=== PATIENT | female | born 1975 | race Caucasian/White ===

== ENCOUNTER 2020-04-22 17:45 | Outpatient (REF) | payer OTHER, SELFPAY ==
--- NOTE | 2020-04-22 | MM_ITS ---
EXAMINATION: MM SCREENING DIGITAL BREAST TOMOSYNTHESIS, BILATERAL CLINICAL INFORMATION: Screening. Asymptomatic. The lifetime risk of breast cancer based on the Tyrer-Cuzick Model is 9.0%. COMPARISON: Mammography: January 24, 2019 and December 20, 2017 TECHNIQUE: Digital breast tomosynthesis is performed in both the craniocaudal and mediolateral oblique views along with computer-aided detection (CAD). Synthesized 2D images are generated from the tomosynthesis. FINDINGS: There are scattered areas of fibroglandular density (ACR BI-RADS breast composition Category b). There are no significant masses, abnormal calcifications, or other abnormalities. MM/MM tomosynthesis screening BI IMPRESSION: There are no significant changes from prior study. ASSESSMENT: BI-RADS 1: Negative RECOMMENDATION: Routine annual mammography screening. This patient's information was entered into a reminder system with a target due date for their next mammogram.
== END 2020-04-22 17:46 | disposition home or self-care (01) ==
LOC: HO.MAMMO 17:45
PROVIDERS: PCP Internal Medicine; Visit Provider Internal Medicine
DX: Z12.31 Encounter for screening mammogram for malignant neoplasm of breast (principal)
CPT/HCPCS: 77063; 77067

== ENCOUNTER 2021-05-05 09:55 | Outpatient (REF) | payer OTHER, SELFPAY ==
--- NOTE | ~2021-05-05 | MM_ITS ---
EXAMINATION: MM SCREENING DIGITAL BREAST TOMOSYNTHESIS, BILATERAL CLINICAL INFORMATION: Screening. Asymptomatic. The lifetime risk of breast cancer based on the Tyrer-Cuzick Model is 7.7%. COMPARISON: Mammography: April 22, 2020 and studies dating back to December 20, 2017 TECHNIQUE: Digital breast tomosynthesis is performed in both the craniocaudal and mediolateral oblique views along with computer-aided detection (CAD). Synthesized 2D images are generated from the tomosynthesis. FINDINGS: There are scattered areas of fibroglandular density (ACR BI-RADS breast composition Category b). There are no significant masses, abnormal calcifications, or other abnormalities. MM/MM tomosynthesis screening BI IMPRESSION: There are no significant changes from prior study. ASSESSMENT: BI-RADS 1: Negative RECOMMENDATION: Routine annual mammography screening. This patient's information was entered into a reminder system with a target due date for their next mammogram.
== END 2021-05-05 09:56 | disposition home or self-care (01) ==
LOC: HO.MAMMO 09:55
PROVIDERS: Visit Provider Internal Medicine
DX: Z12.31 Encounter for screening mammogram for malignant neoplasm of breast (principal)
CPT/HCPCS: 77063; 77067

== ENCOUNTER 2022-05-18 10:08 | Outpatient (REF) | payer OTHER, SELFPAY ==
--- NOTE | ~2022-05-18 | MM_ITS ---
EXAMINATION: MM SCREENING DIGITAL BREAST TOMOSYNTHESIS, BILATERAL CLINICAL INFORMATION: Screening. Asymptomatic. The lifetime risk of breast cancer based on the Tyrer-Cuzick Model is 8.9%. COMPARISON: Mammography: May 05, 2021 and studies dating back to December 20, 2017 TECHNIQUE: Digital breast tomosynthesis is performed in both the craniocaudal and mediolateral oblique views along with computer-aided detection (CAD). Synthesized 2D images are generated from the tomosynthesis. FINDINGS: There are scattered areas of fibroglandular density (ACR BI-RADS breast composition Category b). There are no significant masses, abnormal calcifications, or other abnormalities. MM/MM tomosynthesis screening BI IMPRESSION: No significant changes ASSESSMENT: BI-RADS 1: Negative RECOMMENDATION: Routine annual mammography screening. This patient's information was entered into a reminder system with a target due date for their next mammogram.
== END 2022-05-18 10:09 | disposition home or self-care (01) ==
LOC: HO.MAMMO 10:08
PROVIDERS: Visit Provider Internal Medicine
DX: Z12.31 Encounter for screening mammogram for malignant neoplasm of breast (principal)
CPT/HCPCS: 77063; 77067

== ENCOUNTER 2022-09-13 14:54 | Outpatient (REF) | payer OTHER, SELFPAY ==
[2022-09-13 18:52] LABS: Alanine Aminotransferase 16 U/L (0-31); Albumin Level 4.1 g/dL (3.5-5.0); Alkaline Phosphatase 47 U/L (39-117); Anion Gap 16 (12-20); Aspartate Amino Transferase 21 U/L (5-31); Bilirubin Total 0.9 mg/dL (0.0-1.0); Blood Urea Nitrogen 8 mg/dL (9-16); Carbon Dioxide 25 mmol/L (22-29); Chloride 99 mmol/L (96-108); Estimated Glomerular Filt Rate > 60; Glucose Random 149 mg/dL (60-115); Sodium 137 mmol/L (135-145); Total Protein 7.4 g/dL (6.5-8.0)
[2022-09-14 05:08] LABS: Estimated Average Glucose 134 mg/dL; Hemoglobin A1C 148.6408 umol/L; Hemoglobin A1c % 6.3 %
== END 2022-09-13 14:55 | disposition home or self-care (01) ==
LOC: HO.LAB 14:54
PROVIDERS: PCP Internal Medicine; Visit Provider Internal Medicine
DX: R10.9 Unspecified abdominal pain (principal); M79.10 Myalgia, unspecified site; R19.7 Diarrhea, unspecified; R51.9 Headache, unspecified
CPT/HCPCS: 36415; 80053; 83036

== ENCOUNTER 2023-04-10 10:51 | Outpatient (REF) | payer OTHER, SELFPAY ==
[2023-04-10 13:12] LABS: MANUAL DIFF FLAG NO
[2023-04-10 13:18] LABS: Basophils Percent Auto 0.4 % (0-2); Eosinophils Absolute Auto 0.2 X10*3/uL (0.0-0.4); Eosinophils Percent Auto 1.6 % (0-4); Hematocrit 37.4 % (37.0-47.0); Hemoglobin 13.2 g/dl (12.0-16.0); Imm Gran Abs Auto 0.02 X10*3/uL (0.00-0.03); Imm Gran Pct Auto 0.2 % (0.0-0.4); Lymphocytes Absolute Auto 3.5 X10*3/uL (1.2-4.9); Mean Corpuscular HGB Conc 35.3 g/dl (31.0-35.0); Mean Corpuscular Hemoglobin 31.5 pg (27.0-33.0); Mean Corpuscular Volume 89.3 fL (80.0-98.0); Mean Platelet Volume 9.8 fL (9.4-12.3); Monocytes Absolute Auto 0.7 X10*3/uL (0.1-1.2); Monocytes Percent Auto 7.3 % (2-11); Neutrophils Percent Auto 53.5 % (45-73); Platelet Count 241 X10*3/uL (160-400); Red Blood Count 4.19 X10*6/uL (4.20-5.50); Red Cell Distribution Width 11.9 % (11.0-16.0); White Blood Count 9.4 X10*3/uL (4.8-10.8)
[2023-04-10 13:29] LABS: Alanine Aminotransferase 20 U/L (0-31); Albumin Level 4.4 g/dL (3.5-5.0); Alkaline Phosphatase 51 U/L (39-117); Anion Gap 11 (12-20); Aspartate Amino Transferase 22 U/L (5-31); Bilirubin Total 0.5 mg/dL (0.0-1.0); Blood Urea Nitrogen 12 mg/dL (9-16); Calcium 10.2 mg/dL (8.4-10.2); Carbon Dioxide 29 mmol/L (22-29); Chloride 101 mmol/L (96-108); Cholesterol 214 mg/dL (<200); Estimated Glomerular Filt Rate > 60; Glucose Random 140 mg/dL (60-115); HDL Cholesterol 38 mg/dL (>40); LDL Cholesterol Calculated 105 mg/dL (<100); Sodium 137 mmol/L (135-145); Total Protein 8.2 g/dL (6.5-8.0); Triglycerides 355 mg/dL (<150)
[2023-04-10 13:31] LABS: Estimated Average Glucose 143 mg/dL; Hemoglobin A1c % 6.6 % (<6.0)
[2023-04-10 14:02] LABS: Creatinine Urine 27.95 mg/dL; Microalbum/Creatinine Ratio Ur 78.7 ug/mg cr (<30)
== END 2023-04-10 10:52 | disposition home or self-care (01) ==
LOC: HO.10HDL 10:51
PROVIDERS: Visit Provider Internal Medicine
DX: Z00.00 Encounter for general adult medical examination without abnormal findings (principal); E11.9 Type 2 diabetes mellitus without complications; E78.00 Pure hypercholesterolemia, unspecified; I10 Essential (primary) hypertension; Z86.010 Personal history of colon polyps
CPT/HCPCS: 36415; 80053; 80061; 82043; 82570; 83036; 85025

== ENCOUNTER 2023-07-02 09:27 | Outpatient (REF) | payer OTHER, SELFPAY ==
[2023-07-02 11:14] LABS: MANUAL DIFF FLAG NO
[2023-07-02 11:24] LABS: Basophils Absolute Auto 0.1 X10*3/uL (0.0-0.2); Basophils Percent Auto 0.8 % (0-2); Eosinophils Absolute Auto 0.1 X10*3/uL (0.0-0.4); Eosinophils Percent Auto 1.8 % (0-4); Hematocrit 36.9 % (37.0-47.0); Hemoglobin 13.6 g/dl (12.0-16.0); Imm Gran Abs Auto 0.01 X10*3/uL (0.00-0.03); Imm Gran Pct Auto 0.1 % (0.0-0.4); Lymphocytes Absolute Auto 3.8 X10*3/uL (1.2-4.9); Lymphocytes Percent Auto 51.7 % (20-40); Mean Corpuscular HGB Conc 36.9 g/dl (31.0-35.0); Mean Corpuscular Hemoglobin 31.8 pg (27.0-33.0); Mean Corpuscular Volume 86.2 fL (80.0-98.0); Mean Platelet Volume 9.9 fL (9.4-12.3); Monocytes Absolute Auto 0.5 X10*3/uL (0.1-1.2); Monocytes Percent Auto 7.1 % (2-11); Neutrophils Absolute Auto 2.8 x10*3/uL (2.0-8.3); Neutrophils Percent Auto 38.5 % (45-73); Platelet Count 227 X10*3/uL (160-400); Red Blood Count 4.28 X10*6/uL (4.20-5.50); Red Cell Distribution Width 12.5 % (11.0-16.0); White Blood Count 7.3 X10*3/uL (4.8-10.8)
[2023-07-02 11:30] LABS: Estimated Average Glucose 134 mg/dL; Hemoglobin A1c % 6.3 % (<6.0)
[2023-07-02 11:33] LABS: Creatinine Urine 45.79 mg/dL; Microalbum/Creatinine Ratio Ur 39.3 ug/mg cr (<30)
[2023-07-02 12:22] LABS: Alanine Aminotransferase 24 U/L (0-31); Albumin Level 4.3 g/dL (3.5-5.0); Alkaline Phosphatase 52 U/L (39-117); Anion Gap 14 (12-20); Aspartate Amino Transferase 22 U/L (5-31); Bilirubin Total 0.5 mg/dL (0.0-1.0); Blood Urea Nitrogen 10 mg/dL (9-16); Calcium 10.1 mg/dL (8.4-10.2); Carbon Dioxide 26 mmol/L (22-29); Chloride 102 mmol/L (96-108); Cholesterol 226 mg/dL (<200); Estimated Glomerular Filt Rate > 60; Glucose Random 206 mg/dL (60-115); HDL Cholesterol 43 mg/dL (>40); LDL Cholesterol Calculated 142 mg/dL (<100); Potassium 3.8 mmol/L (3.3-5.1); Sodium 138 mmol/L (135-145); Total Protein 7.5 g/dL (6.5-8.0); Triglycerides 207 mg/dL (<150)
== END 2023-07-02 09:28 | disposition home or self-care (01) ==
LOC: HO.10HDL 09:27
PROVIDERS: Visit Provider Internal Medicine
DX: Z00.00 Encounter for general adult medical examination without abnormal findings (principal); E11.9 Type 2 diabetes mellitus without complications; E78.00 Pure hypercholesterolemia, unspecified; I10 Essential (primary) hypertension; Z86.010 Personal history of colon polyps
CPT/HCPCS: 36415; 80053; 80061; 82043; 82570; 83036; 85025

== ENCOUNTER 2023-07-14 08:46 | Outpatient (REF) | payer OTHER, SELFPAY | END 2023-07-14 08:47 | disposition home or self-care (01) | LOC: HO.MAMMO 08:46 | PROVIDERS: PCP Internal Medicine; Visit Provider Internal Medicine | DX: Z12.31 Encounter for screening mammogram for malignant neoplasm of breast (principal) | CPT/HCPCS: 77063; 77067 ==

== ENCOUNTER → 2023-07-14 09:00 | Outpatient (BNV) | payer OTHER, SELFPAY | PROVIDERS: PCP Internal Medicine; Visit Provider Radiology Diagnostic Radiology | DX: Z12.31 Encounter for screening mammogram for malignant neoplasm of breast (principal) | CPT/HCPCS: 77063; 77067 ==

== ENCOUNTER 2023-10-03 09:59 | Outpatient (REF) | payer OTHER, SELFPAY ==
[2023-10-03 11:18] LABS: Estimated Average Glucose 151 mg/dL; Hemoglobin A1c % 6.9 % (<6.0)
[2023-10-03 11:33] LABS: Alanine Aminotransferase 20 U/L (0-31); Albumin Level 4.2 g/dL (3.5-5.0); Alkaline Phosphatase 49 U/L (39-117); Anion Gap 10 (12-20); Aspartate Amino Transferase 20 U/L (5-31); Bilirubin Total 0.6 mg/dL (0.0-1.0); Blood Urea Nitrogen 9 mg/dL (9-16); Calcium 9.5 mg/dL (8.4-10.2); Carbon Dioxide 28 mmol/L (22-29); Chloride 105 mmol/L (96-108); Cholesterol 216 mg/dL (<200); Estimated Glomerular Filt Rate > 60; Glucose Random 154 mg/dL (60-115); HDL Cholesterol 37 mg/dL (>40); LDL Cholesterol Calculated 118 mg/dL (<100); Potassium 3.9 mmol/L (3.3-5.1); Sodium 139 mmol/L (135-145); Total Protein 7.8 g/dL (6.5-8.0); Triglycerides 308 mg/dL (<150)
== END 2023-10-03 10:00 | disposition home or self-care (01) ==
LOC: HO.10HDL 09:59
PROVIDERS: Visit Provider Internal Medicine
DX: E11.9 Type 2 diabetes mellitus without complications (principal); E78.2 Mixed hyperlipidemia; I10 Essential (primary) hypertension; Z68.34 Body mass index [BMI] 34.0-34.9, adult
CPT/HCPCS: 36415; 80053; 80061; 83036

== ENCOUNTER 2024-01-22 08:28 | Outpatient (REF) | payer OTHER, SELFPAY ==
[2024-01-22 11:33] LABS: Estimated Average Glucose 131 mg/dL; Hemoglobin A1c % 6.2 % (<6.0)
[2024-01-22 11:34] LABS: Alanine Aminotransferase 17 U/L (0-31); Albumin Level 4.2 g/dL (3.5-5.0); Alkaline Phosphatase 52 U/L (39-117); Anion Gap 11 (12-20); Aspartate Amino Transferase 17 U/L (5-31); Bilirubin Total 0.5 mg/dL (0.0-1.0); Blood Urea Nitrogen 8 mg/dL (9-16); Calcium 9.6 mg/dL (8.4-10.2); Carbon Dioxide 27 mmol/L (22-29); Chloride 105 mmol/L (96-108); Estimated Glomerular Filt Rate > 60; Glucose Random 156 mg/dL (60-115); Potassium 4.1 mmol/L (3.3-5.1); Sodium 139 mmol/L (135-145); Total Protein 7.7 g/dL (6.5-8.0)
== END 2024-01-22 08:29 | disposition home or self-care (01) ==
LOC: HO.10HDL 08:28
PROVIDERS: Visit Provider Internal Medicine
DX: E11.9 Type 2 diabetes mellitus without complications (principal); E78.00 Pure hypercholesterolemia, unspecified; I10 Essential (primary) hypertension
CPT/HCPCS: 36415; 80053; 83036

== ENCOUNTER 2024-02-26 11:00 | Outpatient (RCR) | payer OTHER, SELFPAY | END 2024-03-17 12:02 | disposition home or self-care (01) | LOC: HO.PT 11:00 | PROVIDERS: PCP Internal Medicine; Visit Provider Internal Medicine Rheumatology | DX: M79.7 Fibromyalgia (principal); M54.50 Low back pain, unspecified; M17.0 Bilateral primary osteoarthritis of knee; M79.672 Pain in left foot; M79.671 Pain in right foot | CPT/HCPCS: 97110; 97112; 97140; 97162 ==

== ENCOUNTER 2024-02-27 09:12 | Outpatient (REF) | payer OTHER, SELFPAY ==
[2024-02-27 10:39] LABS: MANUAL DIFF FLAG NO
[2024-02-27 10:45] LABS: Basophils Percent Auto 0.5 % (0-2); Eosinophils Absolute Auto 0.2 X10*3/uL (0.0-0.4); Eosinophils Percent Auto 2.4 % (0-4); Hematocrit 36.3 % (37.0-47.0); Imm Gran Abs Auto 0.04 X10*3/uL (0.00-0.03); Imm Gran Pct Auto 0.6 % (0.0-0.4); Lymphocytes Absolute Auto 2.9 X10*3/uL (1.2-4.9); Lymphocytes Percent Auto 44.5 % (20-40); Mean Corpuscular HGB Conc 35.8 g/dl (31.0-35.0); Mean Corpuscular Hemoglobin 31.6 pg (27.0-33.0); Mean Corpuscular Volume 88.1 fL (80.0-98.0); Mean Platelet Volume 9.3 fL (9.4-12.3); Monocytes Absolute Auto 0.5 X10*3/uL (0.1-1.2); Monocytes Percent Auto 8.2 % (2-11); Neutrophils Absolute Auto 2.9 x10*3/uL (2.0-8.3); Neutrophils Percent Auto 43.8 % (45-73); Platelet Count 220 X10*3/uL (160-400); Red Blood Count 4.12 X10*6/uL (4.20-5.50); Red Cell Distribution Width 11.9 % (11.0-16.0); White Blood Count 6.6 X10*3/uL (4.8-10.8)
[2024-02-27 10:53] LABS: Estimated Average Glucose 128 mg/dL; Hemoglobin A1C 141.7911 umol/L; Hemoglobin A1c % 6.1 % (<6.0); Total Hemoglobin (HGBA1C) 3326.1476 umol/L
[2024-02-27 10:57] LABS: Alanine Aminotransferase 12 U/L (0-31); Albumin Level 4.2 g/dL (3.5-5.0); Alkaline Phosphatase 51 U/L (39-117); Anion Gap 12 (12-20); Aspartate Amino Transferase 13 U/L (5-31); Bilirubin Total 0.5 mg/dL (0.0-1.0); Blood Urea Nitrogen 12 mg/dL (9-16); Calcium 9.7 mg/dL (8.4-10.2); Carbon Dioxide 25 mmol/L (22-29); Chloride 107 mmol/L (96-108); Cholesterol 204 mg/dL (<200); Estimated Glomerular Filt Rate > 60; Glucose Random 138 mg/dL (60-115); HDL Cholesterol 33 mg/dL (>40); LDL Cholesterol Calculated 128 mg/dL (<100); Potassium 3.6 mmol/L (3.3-5.1); Sodium 140 mmol/L (135-145); Total Protein 7.7 g/dL (6.5-8.0); Triglycerides 215 mg/dL (<150)
[2024-02-27 11:13] LABS: Creatinine Urine 239.12 mg/dL; Microalbum/Creatinine Ratio Ur 28.4 ug/mg cr (<30)
== END 2024-02-27 09:13 | disposition home or self-care (01) ==
LOC: HO.10HDL 09:12
PROVIDERS: Visit Provider Internal Medicine
DX: E11.9 Type 2 diabetes mellitus without complications (principal); E78.00 Pure hypercholesterolemia, unspecified; I10 Essential (primary) hypertension; Q66.51 Congenital pes planus, right foot
CPT/HCPCS: 36415; 80053; 80061; 82043; 82570; 83036; 85025

== ENCOUNTER 2024-04-08 11:04 | Outpatient (RCR) | payer OTHER, SELFPAY ==
--- NOTE | 2024-04-08 14:43 | MHC.PT.DC ---
[facility] [place] Office [place] Office [place] Office [address] Tati Rae [address] [phone] F: [phone] F: [phone] F: [phone] F: [phone] Physical Therapy Discharge Report Diagnosis: foot pain (per MD) mild plantar fasciitis d/t R LE weakness (RS) Date of Surgery: Date of Evaluation: 03/17/24 Date of Discharge: 04/08/24 Treatments to Date: 6 Cancellations to Date: 5 No Shows to Date: 0 Discharge Status: Improved Function Recommend MD Follow-up Discharge Summary: Elizabeth shows improvement in AROM of R ankle, improved gait pattern with addition of heel lift in L shoe, increased strength in R ankle and R hip, but with weakness remaining in glues which could effect medial foot/plantar fascia and low back. During her time in PT she has been educated and re-educated on importance of consistency with exercises to strengthen LE musculature, consistent use of heel lift to correct malalignment/leg length discrepancy. She has difficulty showing HEP throughout her time in PT and bends at the waist to perform activities such as shrimp picker shoes or keys despite education and practice of proper squat to prevent LBP. She completed approved amount of PT sessions set by insurance. I do not feel more PT for this condition would be beneficial at this time, but that consistency with home program is needed to see significant progress outside of PT sessions. She continues to note that pain is the most limiting factor. Therefore return to MD, specialist or pain management may be most beneficial. Electronically signed by: Verna Ramsay, PT, DPT Please sign and return to therapist. Thank you for your referral.
== END 2024-04-08 14:44 | disposition home or self-care (01) ==
LOC: HO.PT 11:04
PROVIDERS: PCP Internal Medicine; Visit Provider Internal Medicine Rheumatology
DX: M79.7 Fibromyalgia (principal); M54.50 Low back pain, unspecified; M17.0 Bilateral primary osteoarthritis of knee
CPT/HCPCS: 97110; 97112; 97116; 97140; 97161

== ENCOUNTER 2024-04-30 09:52 | Outpatient (AMB) | payer OTHER, SELFPAY ==
[2024-04-30 10:31] VITALS: BP 118/78; PULSE 72; O2SAT 98; BMI 33.6
--- NOTE | 2024-04-30 10:31 | A.OFFVIS_ITS ---
Vital Signs 04/30/24 10:31 Height 5 ft 1 in Weight 177 lb 14.609 oz BMI 33.6 BP 118/78 Blood Pressure Location Lt brachial Position Sitting Pulse 72 Pulse Source Pulse Oximeter Pulse Oximetry (%) 98 Oxygen Delivery Method Room Air Intake Visit Reasons: FM/cm Intake Note: Patient presents today for follow up on fibromyalgia. Allergies No Known Allergies Allergy (Verified 04/30/24 10:35) HPI HPI FM/cm: Details: R foot pain for 5 pains in between web spaces. Massage, salt bath and vix rub helps. She was unable to touch it when it started. She is having weakness in hands. Has to drop things when holding heavy cookware/food. She is going to PT for back pain without relief. She reports when she does the exercises consistently she has relief. If she misses a day she has recurrence of back pain. Psychiatry increased duloxetine. She has had a little bit of benefit. Review of Systems Const All systems reviewed & are unremarkable except as noted in HPI and below Physical Exam Vital Signs: Last Vital Signs Pulse 72 04/30/24 10:31 BP 118/78 04/30/24 10:31 Pulse Ox 98 04/30/24 10:31 Oxygen Delivery Method Room Air 04/30/24 10:31 BMI result Body Mass Index 33.6 Assessment & Plan Assessment & Plan (1) Foot pain: Comment: Chronic pain localized to 4th metatarsal head laterally. We will rule out fracture any other bone pathology with x-ray Code(s): M79.673 - Pain in unspecified foot Category: Medical Qualifiers: Laterality: right Qualified Code(s): M79.671 - Pain in right foot Plan: X-ray ordered. We will inform patient of x-ray results as soon as they are available. She declined NSAID this visit due to fear of side effects Return to clinic in 3 months (2) Osteoarthritis, knee: Comment: Uncontrolled pain. Previously failed PT in the past, cortisone injections, gel injections and NSAIDs. Gabapentin 09/07/2021 to 12/07/2021 DC due to palpitations. She had some benefit with diclofenac 50 mg p.o. b.i.d. but is fearful of side effects and does not want to take it penitentiary. She agreed to PT. Code(s): M17.9 - Osteoarthritis of knee, unspecified Category: Medical Qualifiers: Osteoarthritis type: primary Laterality: bilateral Qualified Code(s): M17.0 - Bilateral primary osteoarthritis of knee Plan: PT order given to patient. She prefers to continue working with physical therapist that she is currently working with at this time. 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
== END 2024-04-30 11:14 | disposition home or self-care (01) ==
PROVIDERS: PCP Internal Medicine; Visit Provider Internal Medicine Rheumatology
DX: M79.671 Pain in right foot (principal); M17.0 Bilateral primary osteoarthritis of knee
CPT/HCPCS: 99213; G2211

== ENCOUNTER → 2024-04-30 09:52 | Outpatient (BNVA) | payer OTHER, SELFPAY | PROVIDERS: PCP Internal Medicine; Visit Provider Internal Medicine Rheumatology | DX: M79.671 Pain in right foot (principal); M17.0 Bilateral primary osteoarthritis of knee; Z79.1 Long term (current) use of non-steroidal anti-inflammatories (NSAID) | CPT/HCPCS: 99212 ==

== ENCOUNTER 2024-05-19 12:52 | Outpatient (REF) | payer OTHER, SELFPAY ==
--- NOTE | ~2024-05-19 | XR_ITS ---
CLINICAL HISTORY: M79.673 - Pain in unspecified foot 3 view right foot Comparison: None Findings: Bones intact. No dislocations. No significant loss of joint space, osteophytes, or erosions. No ankle effusion. No radiopaque foreign body. IMPRESSION: 1. No acute findings. This document has been electronically signed by: Kevin Sanchez MD on 05/22/2024 11:36:23
== END 2024-05-19 12:53 | disposition home or self-care (01) ==
LOC: HO.XRAY 12:52
PROVIDERS: PCP Internal Medicine; Visit Provider Internal Medicine Rheumatology
DX: M79.673 Pain in unspecified foot (principal); M17.9 Osteoarthritis of knee, unspecified; Z79.1 Long term (current) use of non-steroidal anti-inflammatories (NSAID)
CPT/HCPCS: 73620

== ENCOUNTER → 2024-05-19 12:54 | Outpatient (BNV) | payer OTHER, SELFPAY | PROVIDERS: PCP Internal Medicine; Visit Provider Radiology Vascular & Interventional Radiology | DX: M79.671 Pain in right foot (principal) | CPT/HCPCS: 73620 ==

== ENCOUNTER 2024-07-31 10:24 | Outpatient (AMB) | payer OTHER, SELFPAY ==
[2024-07-31 10:41] VITALS: BP 120/90; PULSE 73; O2SAT 73; BMI 33.3
--- NOTE | 2024-07-31 10:41 | MHC.OFFVIS ---
Vital Signs 07/31/24 10:41 Height 5 ft 1 in Weight 176 lb BMI 33.3 BP 120/90 H Blood Pressure Location Lt brachial Position Sitting Pulse 73 Pulse Source Pulse Oximeter Pulse Oximetry (%) 73 L Oxygen Delivery Method Room Air Intake Visit Reasons: Follow Up 3mo Intake Note: Follow up for fibromalgia Allergies No Known Allergies Allergy (Verified 07/31/24 10:42) HPI HPI Follow Up 3mo: Details: She was unable to start PT. SHe was told she had to wait 3 months to start at [facility] main [employer]. She has been doing her own exercises at home. She has been having chronic back pain for years. She localizes pain to her lower right side. She has been using heat and stretching without benefit. Review of Systems Const All systems reviewed & are unremarkable except as noted in HPI and below Physical Exam Vital Signs: Last Vital Signs Pulse 73 07/31/24 10:41 BP 120/90 H 07/31/24 10:41 Pulse Ox 73 L 07/31/24 10:41 Oxygen Delivery Method Room Air 07/31/24 10:41 BMI result Body Mass Index 33.3 Const Other: General: Comfortable CVS: RRR Respiratory: clear to auscultation bilaterally. Good respiratory effort Skin: No lesions seen MSK: Tender to palpate mid to lumbar paraspinal muscles and laterally. Normal lumbar flexion. Shoulder abduction 170 degrees left and 160 degrees right with normal internal and external rotation. Normal range of motion of lower extremities. Mild Valgus deformity of knees. She has tenderness to palpate right 5th MTP without synovitis. Assessment & Plan Assessment & Plan (1) Myofascial low back pain: Comment: Discussed conservative management Code(s): M54.50 - Low back pain, unspecified Category: Medical Plan: Continue to apply heat to back She will try using hot packs PT ordered with myofascial release (2) Pes planus: Comment: She localizes pain to her right 5th MTP. X-ray right foot did not reveal any pathology. Unremarkable exam. She has past planus. We discussed importance of wearing supportive footwear. Code(s): M21.40 - Flat foot [pes planus] (acquired), unspecified foot Category: Medical Plan: I recommend that she try OTC insoles with supportive shoes. If no benefit with OTC insoles, I recommend seeing supervising bailiff for further evaluation and for custom insoles. Return to clinic in 3 months (3) Osteoarthritis, knee: Comment: Uncontrolled pain. Previously failed PT in the past, cortisone injections, gel injections and NSAIDs. Gabapentin 09/07/2021 to 12/07/2021 DC due to palpitations. She had some benefit with diclofenac 50 mg p.o. b.i.d. 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 She agreed to PT. Code(s): M17.9 - Osteoarthritis of knee, unspecified Category: Medical Qualifiers: Osteoarthritis type: primary Laterality: bilateral Qualified Code(s): M17.0 - Bilateral primary osteoarthritis of knee Plan: PT ordered Return to clinic in 3 months Coding Level of Care Code Est Pt Level 4 (68941) Complex EM visit Add On G2211 Diagnoses Myofascial low back pain M54.50 Pes planus M21.40 Primary osteoarthritis of both knees M17.0 Osteoarthritis type: primary Laterality: bilateral
--- OUTSIDE RECORDS SUMMARY | 2024-07-31 12:59 | XMS_ITS | Clinical Summary ---
Author Organization [address] [facility] Address [address] [place] [address] Phone Care Team Providers Care Transformer Stock Clerk Name Role Phone Unavailable Primary Care Provider Unavailabl e Social History Tobacco Use Types Packs/Day Years Used Date Smoking Tobacco: Never Assessed Comments Unknown Sex and Gender Information Value Date Recorded Sex Assigned at Not on file Legal Sex Female 8:51 AM EST Gender Identity Not on file Sexual Orientation Not on file Plan of Treatment Health Maintenance Due Date Last Done Comments Breast Cancer Screening 1975 DTaP,Tdap,and Td Vaccines (1 - Tdap) 12/20/1995 Hepatitis B Vaccines (1 of 3 - 19+ 3-dose series) 12/20/1995 Colorectal Cancer Screening: Colonoscopy 04/23/2022 Depression Screening 04/23/2022 HIV Screening 04/23/2022 Hepatitis C Screening 04/23/2022 Social Influencers of Health Screening 04/23/2022 COVID-19 Vaccine ( - 2023-2 5 season) 2024 Influenza Vaccine (#1) 2024 Cervical Cancer Screening: HPV 04/24/2029 04/24/2024 HIB Vaccines Aged Out No longer eligi ble based on patient's age to complete this topic HPV Vaccines Aged Out No longer eligi ble based on patient's age to complete this topic Hepatitis A Vaccines Aged Out No long er eligible based on patient's age to complete this topic IPV Vaccines Aged Out No longer eligi ble based on patient's age to complete this topic MMR Vaccines Aged Out No longer eligi ble based on patient's age to complete this topic Meningococcal ACWY Vaccine Aged Out N o longer eligible based on patient's age to complete this topic Meningococcal B Vacine Aged Out No lo nger eligible based on patient's age to complete this topic Pneumococcal Vaccine: Pediat rics (0 to 5 Years) and At-Risk Patients (6 to 64 Years) Aged Out No longer eligi ble based on patient's age to complete this topic RSV Immunization Patients Un maria alejandra 20 months Aged Out No longer eligible b ased on patient's age to complete this topic Varicella Vaccines Aged Out No longer eligible based on patient's age to complete this topic Procedures Procedure Name Priority Date/Time Associated Diagnosis Comments HPV WITH REFLEX GENOTYPE Routine 04/24/2024 12:00 AM EST Encounter for screening for malignant neoplasm of cervix from Last 3 Months or Most Recently Relevant to Health Maintenance Results * HPV with reflex genotype (04/24/2024 12:00 AM EST) HPV Negative Negative LAB MICROBIOLOGY METHOD 04/28/2024 1:36 PM EST [facility] Brushing/Spatula Cervix uteri structure / Unknown 04/24/2024 04/25/2024 10:50 AM EST us Marga Sagastume MD LAB MOLECULAR DIAGNOSTICS ORD ERABLES Final Result [facility] [address] [place] [address], from Last 3 Months or Most Recently Relevant to Health Maintenance Insurance MEDICAID - [place]
--- OUTSIDE RECORDS SUMMARY | 2024-07-31 12:59 | XMS_ITS | Encounter Summary ---
Author Organization [facility] Address [address] [place] [address] Care Team Providers Care Slot Key Person Name Role Phone Unavailable Primary Care Provider Unavailabl e Encounter Details Date Type Department Care Team (Late st Contact Info) Description 04/25/[address] [facility] Lab [address] [place] [address] Marga Sagastume MD [address] [place] [address] [place] [address] Encounter for screening for malignant neoplasm of cervix Social History Tobacco Use Types Packs/Day Years Used Date Smoking Tobacco: Never Assessed Comments Unknown Sex and Gender Information Value Date Recorded Sex Assigned at Not on file Legal Sex Female 8:51 AM EST Gender Identity Not on file Sexual Orientation Not on file documented as of this encounter Plan of Treatment Not on file documented as of this encounter Procedures Procedure Name Priority Date/Time Associated Diagnosis Comments HPV WITH REFLEX GENOTYPE Routine 04/24/2024 12:00 AM EST Encounter for screening for malignant neoplasm of cervix PAP SMEAR Routine 04/24/2024 12:00 AM EST Encounter for screening for malignant neoplasm of cervix documented in this encounter Results * HPV with reflex genotype (04/24/2024 12:00 AM EST) HPV Negative Negative LAB MICROBIOLOGY METHOD 04/28/2024 1:36 PM EST [facility] Brushing/Spatula Cervix uteri structure / Unknown 04/24/2024 04/25/2024 10:50 AM EST Marga Sagastume MD LAB MOLECULAR DIAGNOSTICS ORD ERABLES Final Result [facility] [address] [place] [address], [place] [phone] * Pap smear (04/24/2024 12:00 AM EST) Interpretation Negative for intraepithelial lesion or malignancy 04/30/2024 6:03 PM EST [facility] General Categorization Negative 04/30/2024 6:03 PM EST [facility] LMP 04/30/2024 6:03 PM [facility] Comment:2 WKS Specimen Adequacy Satisfactory for evaluation, endocervical/marrero sformation zone component absent 04/30/2024 6:03 PM EST [facility] Pap Methodology Liquid Based Pap Test 04/30/2024 6:03 PM EST [facility] Disclaimer The Pap test is a screening test which carries an inherent false negative rate. These test results should be correlated with the patient's clinical findings and history. This Pap test was processed using an automated screening system. Technical cytopathology services provided by [facility], at [address] [place] [id number] (CLIA # [id number]/Elena Kuo MD, Mechanical Reliability Engineer.) 04/30/2024 6:03 PM EST [facility] Console Pap Interpretation Reported 04/30/2024 6:03 PM [facility] Brushing/Spatula Cervix uteri structure / Unknown 04/24/2024 04/25/2024 10:50 AM EST Marga Sagastume MD LAB CYTOLOGY ORDERABLES Final Result Performing Organization Address City/[facility]/ZIP Co de Phone Number [facility] [address] [place] [address], [place] [phone] documented in this encounter Visit Diagnoses Diagnosis Encounter for screening for malignant neoplasm of cervix documented in this encounter
== END 2024-07-31 11:11 | disposition home or self-care (01) ==
LOC: HO.RHES 10:25
PROVIDERS: PCP Internal Medicine; Visit Provider Internal Medicine Rheumatology
DX: M54.50 Low back pain, unspecified (principal); M21.40 Flat foot [pes planus] (acquired), unspecified foot; M17.0 Bilateral primary osteoarthritis of knee
CPT/HCPCS: 99214; G2211

== ENCOUNTER → 2024-07-31 10:24 | Outpatient (BNVA) | payer OTHER, SELFPAY | PROVIDERS: PCP Internal Medicine; Visit Provider Internal Medicine Rheumatology | DX: M54.50 Low back pain, unspecified (principal); M21.41 Flat foot [pes planus] (acquired), right foot; M17.0 Bilateral primary osteoarthritis of knee | CPT/HCPCS: 99212 ==

== ENCOUNTER 2024-08-01 09:13 | Outpatient (REF) | payer OTHER, SELFPAY ==
--- OUTSIDE RECORDS SUMMARY | 2024-08-01 10:00 | XMS_ITS | Clinical Summary ---
Author Organization [address] [facility] Address [address] [place] [address] Phone Care Team Providers Care Elder Assistant Name Role Phone Unavailable Primary Care Provider [...] LAB MICROBIOLOGY METHOD 04/28/2024 1:36 PM EST [facility] Brushing/Spatula Cervix uteri structure / Unknown 04/24/2024 04/25/2024 10:50 AM EST us Marga Sagastume MD LAB MOLECULAR DIAGNOSTICS ORD ERABLES Final Result [facility] [address] [place] [address], from Last 3 Months or Most Recently Relevant to Health Maintenance Insurance MEDICAID - [place]
--- OUTSIDE RECORDS SUMMARY | 2024-08-01 10:00 | XMS_ITS | Encounter Summary ---
Author Organization [facility] Address [address] [place] [address] Care Team Providers Care Bobbin Coil Winder Name Role Phone Unavailable Primary Care Provider Unavailabl e Encounter Details Date Type Department Care Team (Late st Contact Info) Description 04/25/2024 Lab Requisition [facility] - Main Lab [address] [place] [address] Marga Sagastume MD [address] [place] [address] [place] [address] Encounter for screening for malignant neoplasm of [...] LAB MICROBIOLOGY METHOD 04/28/2024 1:36 PM EST [facility] Brushing/Spatula Cervix uteri structure / Unknown 04/24/2024 04/25/2024 10:50 AM EST Marga Sagastume MD LAB MOLECULAR DIAGNOSTICS ORD ERABLES Final Result [facility] [address] [place] [address], [place] [phone] * Pap smear (04/24/2024 12:00 AM EST) Interpretation Negative for intraepithelial lesion or malignancy 04/30/2024 6:03 PM EST [facility] General Categorization Negative 04/30/2024 6:03 PM EST [facility] LMP 04/30/2024 6:03 PM [facility] Comment:2 WKS Specimen Adequacy Satisfactory for evaluation, endocervical/marrero sformation zone component absent 04/30/2024 6:03 PM EST [facility] Pap Methodology Liquid Based Pap Test 04/30/2024 6:03 PM EST [facility] Disclaimer The Pap test is a screening test which carries an inherent false negative rate. These test results should be correlated with the patient's clinical findings and history. This Pap test was processed using an automated screening system. Technical cytopathology services provided by [facility], at [address] [place] [id number] (CLIA # [id number]/Elena Kuo MD, Rn Labor And Delivery.) 04/30/2024 6:03 PM EST [facility] Console Pap Interpretation Reported 04/30/2024 6:03 PM [facility] Brushing/Spatula Cervix uteri structure / Unknown 04/24/2024 04/25/2024 10:50 AM EST Marga Sagastume MD LAB CYTOLOGY ORDERABLES Final Result Performing Organization Address City/[facility]/ZIP Co de Phone Number [facility] [address] [place] [address], [place] [phone] documented in this encounter Visit Diagnoses Diagnosis Encounter for screening for malignant neoplasm of cervix documented in this encounter
[2024-08-01 10:47] LABS: Estimated Average Glucose 117 mg/dL; Hemoglobin A1c % 5.7 % (<6.0)
[2024-08-01 11:08] LABS: Alanine Aminotransferase 18 U/L (0-31); Albumin Level 4.2 g/dL (3.5-5.0); Alkaline Phosphatase 53 U/L (39-117); Anion Gap 11 (12-20); Aspartate Amino Transferase 19 U/L (5-31); Bilirubin Total 0.8 mg/dL (0.0-1.0); Blood Urea Nitrogen 12 mg/dL (9-16); Calcium 9.5 mg/dL (8.4-10.2); Carbon Dioxide 26 mmol/L (22-29); Chloride 106 mmol/L (96-108); Cholesterol 138 mg/dL (<200); Estimated Glomerular Filt Rate > 60; Glucose Random 131 mg/dL (60-115); HDL Cholesterol 41 mg/dL (>40); LDL Cholesterol Calculated 71 mg/dL (<100); Potassium 4.1 mmol/L (3.3-5.1); Sodium 139 mmol/L (135-145); Triglycerides 131 mg/dL (<150)
== END 2024-08-01 09:14 | disposition home or self-care (01) ==
LOC: HO.10HDL 09:13
PROVIDERS: Visit Provider Internal Medicine
DX: Z00.00 Encounter for general adult medical examination without abnormal findings (principal); E11.9 Type 2 diabetes mellitus without complications; E78.00 Pure hypercholesterolemia, unspecified; I10 Essential (primary) hypertension; R80.9 Proteinuria, unspecified
CPT/HCPCS: 36415; 80053; 80061; 83036

== ENCOUNTER 2024-08-07 11:52 | Outpatient (REF) | payer OTHER, SELFPAY ==
--- OUTSIDE RECORDS SUMMARY | 2024-08-07 14:16 | XMS_ITS | Encounter Summary ---
Author Organization Jessica [facility] Address [address] [place] [address] Care Team Providers Care Forensic Investigator Name Role Phone Unavailable Primary Care Provider Unavailabl e Encounter Details Date Type Department Care Team (Late st Contact Info) Description 04/25/2024 Lab Requisition [facility] - Main Lab [address] [place] [address] Marga Sagastume MD [address] [place] [address] [place] [address] Encounter for screening for malignant neoplasm of [...] METHOD 04/28/2024 1:36 PM EST [facility] ([facility] Brushing/Spatula Cervix uteri structure / Unknown 04/24/2024 04/25/2024 10:50 AM EST Marga Sagastume MD LAB MOLECULAR DIAGNOSTICS ORD ERABLES Final Result [facility] [address] [place] [address], [place] [phone] * Pap smear (04/24/2024 12:00 AM EST) Interpretation Negative for intraepithelial lesion or malignancy 04/30/2024 6:03 PM EST [facility] General Categorization Negative 04/30/2024 6:03 PM EST [facility] LMP 04/30/2024 6:03 PM [facility] Comment:2 WKS Specimen Adequacy Satisfactory for evaluation, endocervical/marrero sformation zone component absent 04/30/2024 6:03 PM EST [facility] Pap Methodology Liquid Based Pap Test 04/30/2024 6:03 PM EST [facility] Disclaimer The Pap test is a screening test which carries an inherent false negative rate. These test results should be correlated with the patient's clinical findings and history. This Pap test was processed using an automated screening system. Technical cytopathology services provided by [facility], at [address] [place] [address] (CLIA # [id number]/Elena Kuo MD, Motor Electrician.) 04/30/2024 6:03 PM EST [facility] Console Pap Interpretation Reported 04/30/2024 6:03 PM [facility] Brushing/Spatula Cervix uteri structure / Unknown 04/24/2024 04/25/2024 10:50 AM EST Marga Sagastume MD LAB CYTOLOGY ORDERABLES Final Result Performing Organization Address City/[facility]/ZIP Co de Phone Number [facility] [address] [place] [address], [place] [phone] documented in this encounter Visit Diagnoses Diagnosis Encounter for screening for malignant neoplasm of cervix documented in this encounter
--- OUTSIDE RECORDS SUMMARY | 2024-08-07 14:16 | XMS_ITS | Clinical Summary ---
Author Organization 299 [facility] Address [address] [place] [address] Phone Care Team Providers Care Oil Well Cable Tool Driller Name Role Phone Unavailable Primary Care Provider [...] LAB MICROBIOLOGY METHOD 04/28/2024 1:36 PM EST [facility] Brushing/Spatula Cervix uteri structure / Unknown 04/24/2024 04/25/2024 10:50 AM EST us Marga Sagastume MD LAB MOLECULAR DIAGNOSTICS ORD ERABLES Final Result [facility] LAB [address] [place] [address], from Last 3 Months or Most Recently Relevant to Health Maintenance Insurance [place] - [place]
== END 2024-08-07 11:53 | disposition home or self-care (01) ==
LOC: HO.MAMMO 11:52
PROVIDERS: PCP Internal Medicine; Visit Provider Internal Medicine
DX: Z12.31 Encounter for screening mammogram for malignant neoplasm of breast (principal)
CPT/HCPCS: 77063; 77067

== ENCOUNTER → 2024-08-07 12:15 | Outpatient (BNV) | payer OTHER, SELFPAY | PROVIDERS: PCP Internal Medicine; Visit Provider Internal Medicine | DX: Z12.31 Encounter for screening mammogram for malignant neoplasm of breast (principal) | CPT/HCPCS: 77063; 77067 ==

== ENCOUNTER 2024-09-09 09:59 | Outpatient (REF) | payer OTHER, SELFPAY ==
--- OUTSIDE RECORDS SUMMARY | 2024-09-09 11:21 | XMS_ITS | Clinical Summary ---
Author Organization 299 [facility] Address [address] [place] [address] Phone Care Team Providers Care Residential Carpenter Name Role Phone Unavailable Primary Care Provider [...] Influencers of Health Screening 04/23/2022 COVID-19 Vaccine (2023-2 5 season) 2024 Influenza Vaccine (Season Ended) 2025 Cervical Cancer Screening: HPV 04/24/2029 04/24/2024 HIB [...] age to complete this topic Meningococcal B Vaccine Aged Out No l onger eligible based on patient's age to complete [...] LAB MICROBIOLOGY METHOD 04/28/2024 1:36 PM EST [facility] Brushing/Spatula Cervix uteri structure / Unknown 04/24/2024 04/25/2024 10:50 AM EST us Marga Sagastume MD LAB MOLECULAR DIAGNOSTICS ORD ERABLES Final Result [facility] [address] [place] [address], from Last 3 Months or Most Recently Relevant to Health Maintenance Insurance [place] - [place]
--- OUTSIDE RECORDS SUMMARY | 2024-09-09 11:21 | XMS_ITS | Encounter Summary ---
Author Organization Jessica [facility] Address [address] [place] [address] Care Team Providers Care Resp Therapist Name Role Phone Unavailable Primary Care Provider Unavailabl e Encounter Details Date Type Department Care Team (Late st Contact Info) Description 04/25/2024 Lab Requisition [facility] - Main Lab [address] [place] [address] Marga Sagastume MD [address] [place] [address] [place] [address] Encounter for screening for malignant neoplasm of [...] LAB MICROBIOLOGY METHOD 04/28/2024 1:36 PM EST [facility] ([facility] Brushing/Spatula Cervix uteri structure / Unknown 04/24/2024 04/25/2024 10:50 AM EST Marga Sagastume MD LAB MOLECULAR DIAGNOSTICS ORD ERABLES Final Result [facility] [address] [place] [address], [place] [phone] * Pap smear (04/24/2024 12:00 AM EST) Interpretation Negative for intraepithelial lesion or malignancy 04/30/2024 6:03 PM EST [facility] General Categorization Negative 04/30/2024 6:03 PM EST [facility] LMP 04/30/2024 6:03 PM [facility] LAB Comment:2 WKS Specimen Adequacy Satisfactory for evaluation, endocervical/marrero sformation zone component absent 04/30/2024 6:03 PM EST [facility] Pap Methodology Liquid Based Pap Test 04/30/2024 6:03 PM EST [facility] Disclaimer The Pap test is a screening test which carries an inherent false negative rate. These test results should be correlated with the patient's clinical findings and history. This Pap test was processed using an automated screening system. Technical cytopathology services provided by [facility], at [address] [place] [address] (CLIA # [id number]/Elena Kuo MD, Sorter Operator.) 04/30/2024 6:03 PM EST [facility] Console Pap Interpretation Reported 04/30/2024 6:03 PM [facility] Brushing/Spatula Cervix uteri structure / Unknown 04/24/2024 04/25/2024 10:50 AM EST Marga Sagastume MD LAB CYTOLOGY ORDERABLES Final Result Performing Organization Address City/[facility]/ZIP Co de Phone Number [facility] [address] [place] [address], [place] [phone] documented in this encounter Visit Diagnoses Diagnosis Encounter for screening for malignant neoplasm of cervix documented in this encounter
[2024-09-09 13:21] LABS: MANUAL DIFF FLAG NO
[2024-09-09 13:47] LABS: Basophils Percent Auto 0.5 % (0-2); Eosinophils Absolute Auto 0.2 X10*3/uL (0.0-0.4); Eosinophils Percent Auto 2.5 % (0-4); Hematocrit 37.2 % (37.0-47.0); Hemoglobin 13.5 g/dl (12.0-16.0); Imm Gran Abs Auto 0.02 X10*3/uL (0.00-0.03); Imm Gran Pct Auto 0.3 % (0.0-0.4); Lymphocytes Absolute Auto 2.9 X10*3/uL (1.2-4.9); Lymphocytes Percent Auto 37.6 % (20-40); Mean Corpuscular HGB Conc 36.3 g/dl (31.0-35.0); Mean Corpuscular Hemoglobin 32.3 pg (27.0-33.0); Mean Platelet Volume 9.9 fL (9.4-12.3); Monocytes Absolute Auto 0.5 X10*3/uL (0.1-1.2); Monocytes Percent Auto 6.3 % (2-11); Neutrophils Percent Auto 52.8 % (45-73); Platelet Count 213 X10*3/uL (160-400); Red Blood Count 4.18 X10*6/uL (4.20-5.50); Red Cell Distribution Width 11.8 % (11.0-16.0); White Blood Count 7.6 X10*3/uL (4.8-10.8)
[2024-09-09 14:22] LABS: Alanine Aminotransferase 16 U/L (0-31); Albumin Level 4.2 g/dL (3.5-5.0); Alkaline Phosphatase 52 U/L (39-117); Anion Gap 10 (12-20); Aspartate Amino Transferase 19 U/L (5-31); Bilirubin Total 0.6 mg/dL (0.0-1.0); Blood Urea Nitrogen 10 mg/dL (9-16); Calcium 9.3 mg/dL (8.4-10.2); Carbon Dioxide 27 mmol/L (22-29); Chloride 104 mmol/L (96-108); Cholesterol 163 mg/dL (<200); Estimated Average Glucose 117 mg/dL; Estimated Glomerular Filt Rate > 60; Glucose Random 136 mg/dL (60-115); HDL Cholesterol 43 mg/dL (>40); Hemoglobin A1C 138.0307 umol/L; Hemoglobin A1c % 5.7 % (<6.0); LDL Cholesterol Calculated 88 mg/dL (<100); Potassium 3.9 mmol/L (3.3-5.1); Sodium 137 mmol/L (135-145); Total Hemoglobin (HGBA1C) 3550.8688 umol/L; Total Protein 7.5 g/dL (6.5-8.0); Triglycerides 160 mg/dL (<150)
[2024-09-09 14:38] LABS: Thyroid Stimulating Hormone 1.36 uIU/mL (0.32-4.0)
== END 2024-09-09 10:00 | disposition home or self-care (01) ==
LOC: HO.10HDL 09:59
PROVIDERS: Visit Provider Nurse Practitioner Psychiatric/Mental Health
DX: Z79.899 Other long term (current) drug therapy (principal)
CPT/HCPCS: 36415; 80053; 80061; 83036; 84443; 85025

== ENCOUNTER 2024-09-23 09:56 | Outpatient (RCR) | payer OTHER, SELFPAY ==
--- NOTE | 2024-08-05 12:24 | MHC.PT.EP ---
[facility] Office [place] Office [place] Office [address] Tati Rae [address] [phone] F: [phone] F: [phone] F: [phone] F: [phone] Physical Therapy Plan of Care Date of Evaluation: 08/05/24 Date of Surgery: Diagnosis: Bilateral primary OA of knee, M17.0, Low back pain M54.[address] Rocael LEE Additional notes: modalities, myofascial release, tens unit, exercise x 16 sessions date of referral 04/30/24 Assessment: Pt is a RHD 48 y/o female with PMH significant for HTN, DMII, depression per pt, appendectomy, and hx R RTC repair, referred to PT for treatment of Bilateral primary OA of knee, M17.0, Low back pain M54.[address] Rocael LEE Additional notes: modalities, myofascial release, tens unit, exercise x 16 sessions date of referral 04/30/24 Pt expressing history of chronic back pain and knee pain R>L, with history of failed PT in the past for her knees>lower back. Pt reports hx PT for her back at [facility] 01/16/24-03/17/24 x 6 visits with lack of significant gain, some short term relief while completing but then reduction upon stopping her program. Pt would benefit from another round of PT to address current impairments in her mobility/pain levels. She expresses fear of falling due to knee instability and reports difficulty rising off the couch due to her back pain. She has limited carryover from a few exercises of what she has done in the past. She will benefit from integration of manual therapy, trial of TENS, and taping in addition to an active based exercise walking/program. Post initial evaluation, she was trialed with application of ROCKTAPE to her R lumbar > R knee region in effort to improve tissue mobility, aide in support and stretch. She was issued a handout for self-care/removal and goals of use for application. We discussed the importance of avoiding static positions for too long and the importance of movement/exercise program along with goals for PT. Frequency and Duration: The patient will be seen 2x/week x 6 weeks Short Term Goals: 1. Initiate self care/HEP program to address knee and back pain. 2. Implement a walking program for self care. 3. Demonstrate 25% reduction in back pain during ADLS/IADLS. 4. Demonstrate good techniques for functional squat 3:3 trials with good technique, knee pain <3/10. Mcc Goals: 1. I HEP/body mechanics/self-care management. 2. Demonstrate gains in Oswestry disabiity index score. 3. Strengthen L>R hip ext to 5/5; hip abd to 5/5 B LE. 4. Complete bridge/bed mobility MOD I with sx in lumbar <3/10 on VAS score. 5. Pt will demonstrate stair negotiation reciprocally with good dynamic balance. Treatment Plan: Modalities to reduce pain, spasms and effusion. Manual therapy to restore motion and function. Therapeutic exercise to improve strength and flexibility. Neuromuscular re-education for posture and balance. Therapeutic activities to return to functional activities of daily living. Electronically signed by: Debra Stevens PT, DPT Please sign and return to therapist. Thank you for your referral.
--- NOTE | 2024-09-23 10:43 | MHC.PT.DC ---
[facility] [place] Office [place] Office [place] Office [address] Tati Rae [address] [phone] F: [phone] F: [phone] F: [phone] F: [phone] Physical Therapy Discharge Report Diagnosis: Bilateral primary OA of knee, M17.0, Low back pain M54.[address] Rocael LEE Additional notes: modalities, myofascial release, tens unit, exercise x 16 sessions date of referral 04/30/24 Date of Surgery: Date of Evaluation: 08/05/24 Date of Discharge: 09/23/24 Treatments to Date: 12 Cancellations to Date: No Shows to Date: Discharge Status: Discharge Summary: 09/23/24: Pt has attended 12 session of PT to date. Pt has met STG/LTG to date. Pt has been issued a comprehensive lumbar/hip/knee/ankle stab program with good carryover. During sessions, pt has received manual therapy, trial of TENS, core strengthening and flexibility exercises. She has responded positively to use of ROCKTAPE support tape trial with one episode of skin irritation so we have not taped since. She has been using the bike and notes intentions of going to the gym but admits some social anxiety impacting her with this. We have discussed the benefit of a walking program small bouts to tolerance increasing as tolerated. Pt notes ongoing fluctuating blood sugars, higher sugars last week in mid 200s, lower this week notes 160s this week per pt (pt notes no change in her diet and expressed concern for this). Pt notes ongoing joint pain overall which impacts her mobility, I just don't want to get out of bed somedays. Pt has been encouraged to continue stationary bike at home. Back pain 10/28, R knee not that bad today DC pt to I HEP (ALL HEP sheets were issued to her again for help with carryover as she has noted to exhibits decreased carryover and benefitted from repeated education during her visits). 09/15/24 Pt encouraged to reach out to her clinical staff anesthesiologist due to history of trending higher blood sugars- 200s/300. Pt verbalized feeling a little better after exercising during session this date. Pt encouraged to continue to monitor. Anticipate transition to I HEP i (has one visit remaining). 09/04/24; Pt demonstrating positive response to therapy, reports good carryover of stabilization activities for hip/core. 09/01/24: Pt trialed with TENS for relief at end of session. Pt with ? lipoma R lumbar region. Pt has purchased a physioball for home program/selfcare HEP sheets. 08/28/24: Pt doing better overall, benefits from support and encouragement to keep up with home program. Pt to research pball for home use. 08/25/24: Pt requesting to focus on her knee today. Pt defer taping - showed area of redness on skin which was irritated post removal for her back. Doing better with respect to knee pain. 08/21/24: Pt is very weak in R hip abd. Issued for home program. Pt encouraged/issued HEP program. 08/18/24: Pt tight in R QL/lumbar paraspinal/glute. Initiated hooklying lumbar stab including tilt, bridge, and march with good tolerance, fatigue expressed ~10 reps each. Pt reports attempting knee exercises at home with good ability. 08/11/24:Pt with positive response to taping/stretches. Pt with modification/use of towel roll for stretches due to hx soreness/hx RTC repair. Pt will benefit from trial of aerobic warm-up/ STM/ TENS trial/ manual therapy next session Pt is a RHD 48 y/o female with PMH significant for HTN, DMII, depression per pt, appendectomy, and hx R RTC repair, referred to PT for treatment of Bilateral primary OA of knee, M17.0, Low back pain M54.[address] Rocael LEE Additional notes: modalities, myofascial release, tens unit, exercise x 16 sessions date of referral 04/30/24 Pt expressing history of chronic back pain and knee pain R>L, with history of failed PT in the past for her knees>lower back. Pt reports hx PT for her back at [facility] 01/16/24-03/17/24 x 6 visits with lack of significant gain, some short term relief while completing but then reduction upon stopping her program. Pt would benefit from another round of PT to address current impairments in her mobility/pain levels. She expresses fear of falling due to knee instability and reports difficulty rising off the couch due to her back pain. She has limited carryover from a few exercises of what she has done in the past. She will benefit from integration of manual therapy, trial of TENS, and taping in addition to an active based exercise walking/program. Post initial evaluation, she was trialed with application of ROCKTAPE to her R lumbar > R knee region in effort to improve tissue mobility, aide in support and stretch. She was issued a handout for self-care/removal and goals of use for application. We discussed the importance of avoiding static positions for too long and the importance of movement/exercise program along with goals for PT. I have a good day, I have a bad day no matter how much therapy I do. Pt verbalizes she has gained insight to some home program. Pt has obtained an exercise ball for home/self care. Pt left session early this jasmina to having another appt right afterwards. Electronically signed by: Debra Stevens, PT, DPT Please sign and return to therapist. Thank you for your referral.
== END 2024-09-23 10:44 | disposition home or self-care (01) ==
LOC: HO.PTS 09:56
PROVIDERS: Visit Provider Internal Medicine Rheumatology
DX: M17.0 Bilateral primary osteoarthritis of knee (principal); M54.50 Low back pain, unspecified
CPT/HCPCS: 97014; 97110; 97140; 97161

== ENCOUNTER 2024-10-23 10:56 | Outpatient (REF) | payer OTHER, SELFPAY ==
--- OUTSIDE RECORDS SUMMARY | 2024-10-23 12:55 | XMS_ITS | Clinical Summary ---
Author Organization 299 [facility] Address [address] [place] [address] Phone Care Team Providers Care Marine Structural Designer Name Role Phone Unavailable Primary Care Provider [...] LAB MICROBIOLOGY METHOD 04/28/2024 1:36 PM EST [facility] LAB Brushing/Spatula Cervix uteri structure / Unknown 04/24/2024 04/25/2024 10:50 AM EST us Marga Sagastume MD LAB MOLECULAR DIAGNOSTICS ORD ERABLES Final Result [facility] [address] [place] [address], from Last 3 Months or Most Recently Relevant to Health Maintenance Insurance [place] - [place]
[2024-10-23 13:17] LABS: Estimated Average Glucose 120 mg/dL; Hemoglobin A1C 140.5866 umol/L; Hemoglobin A1c % 5.8 % (<6.0); Total Hemoglobin (HGBA1C) 3531.3445 umol/L
[2024-10-23 13:25] LABS: Alanine Aminotransferase 22 U/L (0-31); Albumin Level 4.5 g/dL (3.5-5.0); Alkaline Phosphatase 46 U/L (39-117); Anion Gap 9 (12-20); Aspartate Amino Transferase 24 U/L (5-31); Bilirubin Total 0.7 mg/dL (0.0-1.0); Blood Urea Nitrogen 13 mg/dL (9-16); Calcium 9.9 mg/dL (8.4-10.2); Carbon Dioxide 30 mmol/L (22-29); Chloride 105 mmol/L (96-108); Cholesterol 224 mg/dL (<200); Estimated Glomerular Filt Rate > 60; Glucose Random 114 mg/dL (60-115); HDL Cholesterol 43 mg/dL (>40); LDL Cholesterol Calculated 146 mg/dL (<100); Sodium 140 mmol/L (135-145); Total Protein 7.9 g/dL (6.5-8.0); Triglycerides 176 mg/dL (<150)
== END 2024-10-23 10:57 | disposition home or self-care (01) ==
LOC: HO.10HDL 10:56
PROVIDERS: Visit Provider Internal Medicine
DX: Z00.00 Encounter for general adult medical examination without abnormal findings (principal); E11.9 Type 2 diabetes mellitus without complications; E78.00 Pure hypercholesterolemia, unspecified; I10 Essential (primary) hypertension; R80.9 Proteinuria, unspecified
CPT/HCPCS: 36415; 80053; 80061; 83036

== ENCOUNTER 2024-11-05 10:22 | Outpatient (REF) | payer OTHER, SELFPAY ==
[2024-11-05 18:18] LABS: C Reactive Protein 0.34 mg/dL (< or = 0.50)
[2024-11-05 18:27] LABS: Rheumatoid Factor < 13.0 IU/mL (<15.0)
[2024-11-05 19:00] LABS: Erythrocyte Sedimentation Rate 21 MM/HR (0-20)
[2024-11-06 08:48] LABS: HBS Num1 > 1000.00 mIU/mL (0-7.99); HBc Num1 5.83 S/CO (0.00-0.79); HBsAGNum1 0.36 S/CO (0.00-0.99); Hepatitis B Surface Antigen Negative (Negative); ~HepC Num1 0.21 S/CO (0.00-0.79); ~Hepatitis B Surface Antibody REACTIVE (Nonreactive); ~Hepatitis C Antibody Nonreactive (Nonreactive)
[2024-11-06 09:44] LABS: HBc Num3 6.27 S/CO; Hepatitis B Core Antibody Reactive (Nonreactive)
[2024-11-10 15:43] LABS: Cyclic Citrullinated Peptide <16 UNITS
== END 2024-11-05 10:23 | disposition home or self-care (01) ==
LOC: HO.HKASLDS 10:22
PROVIDERS: PCP Internal Medicine; Visit Provider Internal Medicine Rheumatology
DX: M17.0 Bilateral primary osteoarthritis of knee (principal); Z79.899 Other long term (current) drug therapy; M25.50 Pain in unspecified joint; M54.6 Pain in thoracic spine; G89.29 Other chronic pain
CPT/HCPCS: 36415; 85652; 86140; 86200; 86431; 86704; 86706; 86803; 87340; 99212

== ENCOUNTER 2024-11-05 10:22 | Outpatient (AMB) | payer OTHER, SELFPAY ==
[2024-11-05 10:23] VITALS: BP 130/80; PULSE 76; O2SAT 95; BMI 33.5
--- NOTE | 2024-11-05 10:23 | MHC.OFFVIS ---
Vital Signs 11/05/24 10:23 Height 5 ft 1 in Weight 177 lb 8 oz BMI 33.5 BP 130/80 Blood Pressure Location Rt brachial Position Sitting Pulse 76 Pulse Source Pulse Oximeter Pulse Oximetry (%) 95 Oxygen Delivery Method Room Air Intake Visit Reasons: 3 months Intake Note: Follow up for fibromyalgia. Accompanied by: Self / Same As Patient Allergies No Known Allergies Allergy (Verified 11/05/24 10:31) HPI HPI 3 months: Details: She is having pain in midback, right wrist/hand and feet. Every day she a new joint pain. She has had pain in body for 3 weeks all over. She had benefit with PT. Physical Exam Vital Signs: Last Vital Signs Pulse 76 11/05/24 10:23 BP 130/80 11/05/24 10:23 Pulse Ox 95 11/05/24 10:23 Oxygen Delivery Method Room Air 11/05/24 10:23 BMI result Body Mass Index 33.5 Const Other: General: Comfortable CVS: RRR Respiratory: clear to auscultation bilaterally. Good respiratory effort Skin: No lesions seen MSK: Tender to palpate thoracic spinous process. No paraspinal muscle tenderness. Tender to palpate right MCPs and PIP. Tender right ulnar wrist. No synovitis. Normal range of motion of upper extremities and lower extremities. Mild Valgus deformity of knees. Tender to palpate bilateral MTPs more localized to the soles and webspaces. Assessment & Plan Assessment & Plan (1) Multiple joint pain: Comment: She has developed new chronic polyarthralgias involving small joints in hands and feet concerning for early inflammatory arthritis. Code(s): M25.50 - Pain in unspecified joint Category: Medical Plan: Workup ordered with labs and x-rays She is fearful of taking pills. She tolerates pain at this time. I inform her that she has normal kidney function and liver function and she can take NSAIDs or Tylenol to help control her pain Return to clinic in 1-2 months to review the results (2) Back pain: Comment: Chronic mid back pain Code(s): M54.9 - Dorsalgia, unspecified Category: Medical Qualifiers: Back pain location: thoracic back pain Chronicity: chronic Back pain laterality: midline Qualified Code(s): M54.6 - Pain in thoracic spine; G89.29 - Other chronic pain Plan: X-ray T-spine ordered (3) Myofascial low back pain: Comment: Improved with PT Code(s): M54.50 - Low back pain, unspecified Category: Medical Plan: Continue PT exercises at home (4) Osteoarthritis, knee: Comment: Improve pain with physical therapy. Rheumatology history: Previously failed PT in the past, cortisone injections, gel injections and NSAIDs. Gabapentin 09/07/2021 to 12/07/2021 DC due to palpitations. She had some benefit with diclofenac 50 mg p.o. b.i.d. but is fearful of side effects and does not want to take it alf. Code(s): M17.9 - Osteoarthritis of knee, unspecified Category: Medical Qualifiers: Laterality: bilateral Osteoarthritis type: primary Qualified Code(s): M17.0 - Bilateral primary osteoarthritis of knee Plan: Continue PT exercises Orders: Orders XR foot LT min 3V Today M25.50 - Pain in unspecified joint Cyclic Citrullinated Peptide Today M25.50 - Pain in unspecified joint Rheumatoid Factor Today M25.50 - Pain in unspecified joint Erythrocyte Sedimentation Rate Today M25.50 - Pain in unspecified joint, Z79.899 - Other alf (current) drug therapy C Reactive Protein Today M25.50 - Pain in unspecified joint, Z79.899 - Other alf (current) drug therapy XR thoracic spine 2V Today M54.9 - Dorsalgia, unspecified XR hand LT min 3V Today M25.50 - Pain in unspecified joint XR hand RT min 3V Today M25.50 - Pain in unspecified joint Hepatitis B,C Profile Today M25.50 - Pain in unspecified joint Coding Level of Care Code Est Pt Level 4 (85503) Complex EM visit Add On G2211 Diagnoses Multiple joint pain M25.50 Chronic midline thoracic back pain M54.6; G89.29 Back pain location: thoracic back pain Chronicity: chronic Back pain laterality: midline Myofascial low back pain M54.50 Primary osteoarthritis of both knees M17.0 Laterality: bilateral Osteoarthritis type: primary
--- OUTSIDE RECORDS SUMMARY | 2024-11-05 11:47 | XMS_ITS | Clinical Summary ---
Author Organization 299 [facility] Address [address] [place] [address] Phone Care Team Providers Care Taper And Floater Name Role Phone Unavailable Primary Care Provider [...] LAB MICROBIOLOGY METHOD 04/28/2024 1:[address] [facility] Brushing/Spatula Cervix uteri structure / Unknown 04/24/2024 04/25/2024 10:50 AM EST us Marga Sagastume MD LAB MOLECULAR DIAGNOSTICS ORD ERABLES Final Result [facility] [address] [place] [address], from Last 3 Months or Most Recently Relevant to Health Maintenance Insurance [place] - [place]
== END 2024-11-05 11:28 | disposition home or self-care (01) ==
LOC: HO.RHES 10:23
PROVIDERS: PCP Internal Medicine; Visit Provider Internal Medicine Rheumatology
DX: M25.50 Pain in unspecified joint (principal); M54.6 Pain in thoracic spine; G89.29 Other chronic pain; M54.50 Low back pain, unspecified; M17.0 Bilateral primary osteoarthritis of knee
CPT/HCPCS: 99214; G2211

== ENCOUNTER 2024-11-07 09:35 | Outpatient (REF) | payer OTHER, SELFPAY ==
--- NOTE | ~2024-11-07 | XR_ITS ---
EXAMINATION: XR HAND, RIGHT CLINICAL INFORMATION: M25.50 - Pain in unspecified joint COMPARISON: None available. TECHNIQUE: PA, lateral, and oblique views of the right hand. FINDINGS: Phalanges are intact with normal alignment. Metacarpal bones are intact. Carpal bones are intact with normal alignment. Distal radius and ulna are intact. Slight asymmetric joint space narrowing involving the distal interphalangeal joints of the fourth fifth and second digits with the minimal radial deviation at the fourth digit. No lytic or blastic lesions. XR/XR hand RT min 3V IMPRESSION: Mild osteoarthrosis, distal interphalangeal joints, fourth fifth and second digits. Electronically signed by: Adin Yoo MD 11/07/2024 10:07 AM EDT
--- NOTE | ~2024-11-07 | XR_ITS ---
EXAMINATION: XR HAND, LEFT CLINICAL INFORMATION: M25.50 - Pain in unspecified joint COMPARISON: None available. TECHNIQUE: PA, lateral, and oblique views of the left hand. FINDINGS: No acute cortical disruption or malalignment. No lytic or blastic lesions. No subchondral cyst formation. No gross marginal osteophyte formation. No metallic or radiopaque foreign body. No subcutaneous emphysema. No lytic or blastic lesions. XR/XR hand LT min 3V IMPRESSION: Negative x-ray. Electronically signed by: Adin Yoo MD 11/07/2024 10:09 AM EDT
--- NOTE | ~2024-11-07 | XR_ITS ---
EXAMINATION: XR THORACIC SPINE CLINICAL INFORMATION: M54.9 - Dorsalgia, unspecified COMPARISON: None available. TECHNIQUE: AP lateral and swimmer's projection. FINDINGS: Multilevel marginal osteophyte formation and endplate sclerosis without acute cortical disruption or gross malalignment. S-shaped curvature of the mid thoracic spine. No lytic or blastic lesions. XR/XR thoracic spine 2V IMPRESSION: Multilevel spondylosis without acute fracture or listhesis. Mild scoliosis, mid thoracic spine. Electronically signed by: Adin Yoo MD 11/07/2024 10:06 AM EDT
--- NOTE | ~2024-11-07 | XR_ITS ---
EXAMINATION: XR FOOT, LEFT CLINICAL INFORMATION: M25.50 - Pain in unspecified joint COMPARISON: None available. TECHNIQUE: AP, lateral, and oblique views of the left foot. FINDINGS: No acute cortical disruption or malalignment. No lytic or blastic lesions. No metallic or radiopaque foreign body. No subcutaneous emphysema. No gross spur, calcaneus. No gross joint effusion. XR/XR foot LT min 3V IMPRESSION: Normal x-ray left foot. Electronically signed by: Adin Yoo MD 11/07/2024 10:08 AM EDT
--- OUTSIDE RECORDS SUMMARY | 2024-11-07 09:48 | XMS_ITS | Clinical Summary ---
Author Organization 299 [facility] Address [address] [place] [address] Phone Care Team Providers Care Reception Clerk Name Role Phone Unavailable Primary Care [...] LAB MICROBIOLOGY METHOD 04/28/2024 1:36 PM EST [facility] Brushing/Spatula Cervix uteri structure / Unknown 04/24/2024 04/25/2024 10:50 AM EST us Marga Sagastume MD LAB MOLECULAR DIAGNOSTICS ORD ERABLES Final Result [facility] [address] [place] [address], from Last 3 Months or Most Recently Relevant to Health Maintenance Insurance [place] - [place]
== END 2024-11-07 09:36 | disposition home or self-care (01) ==
LOC: HO.XRAY 09:35
PROVIDERS: PCP Internal Medicine; Visit Provider Internal Medicine Rheumatology
DX: M54.6 Pain in thoracic spine (principal); M25.542 Pain in joints of left hand; M25.541 Pain in joints of right hand; M25.572 Pain in left ankle and joints of left foot
CPT/HCPCS: 72070; 73130; 73630

== ENCOUNTER → 2024-11-07 09:36 | Outpatient (BNV) | payer OTHER, SELFPAY | PROVIDERS: PCP Internal Medicine; Visit Provider Radiology Diagnostic Radiology | DX: M47.814 Spondylosis without myelopathy or radiculopathy, thoracic region (principal); M79.641 Pain in right hand; M79.642 Pain in left hand; M79.672 Pain in left foot | CPT/HCPCS: 72070; 73130; 73630 ==

== ENCOUNTER 2025-01-06 10:11 | Outpatient (AMB) | payer OTHER, SELFPAY ==
[2025-01-06 10:19] VITALS: BP 110/90; PULSE 77; O2SAT 97; BMI 33.4
--- NOTE | 2025-01-06 10:19 | MHC.OFFVIS ---
Vital Signs 01/06/25 10:19 Height 5 ft 1 in Weight 177 lb BMI 33.4 BP 110/90 H Blood Pressure Location Lt brachial Position Sitting Pulse 77 Pulse Source Pulse Oximeter Pulse Oximetry (%) 97 Oxygen Delivery Method Room Air Intake Visit Reasons: 2 month Intake Note: Follow up for fibromyalgia. Accompanied by: Self / Same As Patient Allergies No Known Allergies Allergy (Verified 01/06/25 10:19) HPI HPI 2 month: Details: She has pain in back, hands and feet. Unable to walk a lot due to pain. MS 5 minutes. Tylenol 650mg or 1300mg PRN pain. She has not noticed change with diclofenac. Physical Exam Vital Signs: Last Vital Signs Pulse 77 01/06/25 10:19 BP 110/90 H 01/06/25 10:19 Pulse Ox 97 01/06/25 10:19 Oxygen Delivery Method Room Air 01/06/25 10:19 BMI result Body Mass Index 33.4 Const Other: General: Comfortable CVS: RRR Respiratory: clear to auscultation bilaterally. Good respiratory effort Skin: No lesions seen MSK: Tender to palpate thoracic spinous process. No paraspinal muscle tenderness. Tender to palpate right MCPs and PIPs. No synovitis. Diffuse allodynia of upper extremities and lower extremities. Normal range of motion of upper extremities and lower extremities. Paste planus bilateral. Week handgrip. Assessment & Plan Assessment & Plan (1) Osteoarthritis of hands, bilateral: Comment: X-rays reveal degenerative osteoarthritis. She does not have synovitis on exam. Workup for inflammatory arthritis revealed normal inflammatory markers, negative RF and anti CCP antibody. She has multiple tender joints with weakness on exam. Fibromyalgia is contributing to her pain. She reports intermittent wrist swelling. I will monitor clinically and if warranted consider MRI with contrast for evaluation of subclinical inflammatory arthritis in the future. Code(s): M19.041 - Primary osteoarthritis, right hand; M19.042 - Primary osteoarthritis, left hand Category: Medical Plan: OT ordered Recommend paraffin wax bath Start nabumetone 500 mg twice a day Stop diclofenac I will be ordering labs for drug monitoring on chronic NSAID next visit Fibromyalgia management below Return to clinic in 3 months (2) Thoracic osteoarthritis: Comment: Personally reviewed x-ray with patient, which reveals mild multilevel degenerative changes throughout thoracic spine. Code(s): M47.814 - Spondylosis without myelopathy or radiculopathy, thoracic region Category: Medical Plan: PT ordered for back strengthening Try lidocaine patch OTC Start nabumetone 500 mg twice a day Stop diclofenac I will be ordering labs for drug monitoring on chronic NSAID next visit Return to clinic in 3 months (3) Fibromyalgia: Code(s): M79.7 - Fibromyalgia Category: Medical Plan: I recommend that she contact psychiatry for consideration of adding neuropsychiatric medication duloxetine or Savella, which are indicated for both depression management and fibromyalgia. Information on fibromyalgia given to patient to share with her psychiatrist and PCP for further management I encouraged her to continue her home exercise program. In the past she used to go to classes for yoga and Pilates. She will try again. (4) Flat feet, bilateral: Code(s): M21.41 - Flat foot [pes planus] (acquired), right foot; M21.42 - Flat foot [pes planus] (acquired), left foot Category: Medical Plan: Encouraged supportive foot wear Consider podiatry referral for custom insoles Orders: Orders PT Evaluation and Treatment Today M47.814 - Spondylosis without myelopathy or radiculopathy, thoracic region OT Evaluation and Treatment Today M19.041 - Primary osteoarthritis, right hand, M19.042 - Primary osteoarthritis, left hand Medications: New nabumetone Take with food. replace diclofenac po 500 mg PO BID 60 tabs 2RF Discontinued diclofenac potassium Discontinued Reason: Doctor's Order 50 mg PO BID PRN 90 tabs 2RF pain Coding Level of Care Code Est Pt Level 4 (84327) Complex EM visit Add On G2211 Diagnoses Osteoarthritis of hands, bilateral M19.041; M19.042 Thoracic osteoarthritis M47.814 Fibromyalgia M79.7 Flat feet, bilateral M21.41; M21.42
--- OUTSIDE RECORDS SUMMARY | 2025-01-06 11:27 | XMS_ITS | Clinical Summary ---
Author Organization [address] [facility] Address [address] [place] [address] Phone Care Team Providers Care Adjunct Mathematics Instructor Name Role Phone Unavailable Primary Care Provider [...] series) 12/20/1995 Colorectal Cancer Screening: Colonoscopy 04/23/2022 HIV Screening 04/23/2022 Hepatitis C Screening 04/23/2022 Social Influencers of Health Screening 04/23/2022 COVID-19 Vaccine ( - 2023-2 5 season) 2024 Depression Screening 05/21/2024 Influenza Vaccine (#1) 2025 Cervical Cancer Screening: HPV 04/24/2029 04/24/2024 [...] 5 Years) and At-Risk Patients (6 to 49 Years) Aged Out No longer eligi ble [...] LAB MICROBIOLOGY METHOD 04/28/2024 1:[address] [facility] Brushing/Spatula Cervix uteri structure / Unknown 04/24/2024 04/25/2024 10:50 AM EST us Marga Sagastume MD LAB MOLECULAR DIAGNOSTICS ORD ERABLES Final Result [facility] [address] [place] [address], from Last 3 Months or Most Recently Relevant to Health Maintenance Insurance MEDICAID - [place]
== END 2025-01-06 10:58 | disposition home or self-care (01) ==
LOC: HO.RHES 10:12
PROVIDERS: PCP Internal Medicine; Visit Provider Internal Medicine Rheumatology
DX: M19.041 Primary osteoarthritis, right hand (principal); M19.042 Primary osteoarthritis, left hand; M47.814 Spondylosis without myelopathy or radiculopathy, thoracic region; M79.7 Fibromyalgia; M21.41 Flat foot [pes planus] (acquired), right foot; M21.42 Flat foot [pes planus] (acquired), left foot
CPT/HCPCS: 99214; G2211

== ENCOUNTER → 2025-01-06 10:11 | Outpatient (BNVA) | payer OTHER, SELFPAY | PROVIDERS: PCP Internal Medicine; Visit Provider Internal Medicine Rheumatology | DX: M19.041 Primary osteoarthritis, right hand (principal); M19.042 Primary osteoarthritis, left hand; M47.814 Spondylosis without myelopathy or radiculopathy, thoracic region; M79.7 Fibromyalgia | CPT/HCPCS: 99212 ==

== ENCOUNTER 2025-02-24 10:23 | Outpatient (RCR) | payer OTHER, SELFPAY ==
[2025-01-23 07:40] VITALS: BP 138/80; PULSE 80; O2SAT 96
--- NOTE | 2025-01-23 13:18 | MHC.PT.EP ---
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 Cote 01/06/25. Pt states that more recently her anxiety and depression have been overwhelming. She states it is impacting her daily functionality; notes breaking down crying without having a specific trigger. She does express she has an upcoming appt with her psychiatrist and has been encouraged to express these changes to her doctor. She does express having an active therapist who she has contact with every other week. She has had past PT in 08/05/24- 09/23/24 for treatment of B/L knee pain and back pain. Since time of last DC, Elizabeth reports limited compliance with her stabilization and stretching exercises. In the past she has been encouraged to join a gym but has not done this. In the past did yoga but has not done in a long time. Despite carryover and receiving a written HEP she states, I forget what to do. She notes worsening sx in her upper back and describes this as tightness/pressure. She will benefit from receiving manual therapy in addition to education re: a strengthening/postural program/stab program. She presents in [facility] [employer] which has been helpful in providing support for her flat feet and R ankle, R>L knee OA sx. She has been encouraged to follow up with her PCP/psychiatrist to inquire about addition of adding neuropsychiatric medication duloxetine or Savella, which are indicated for both depression management and fibromyalgia per Dr. Cote's recommendation. She expresses hesitation with starting new medication but has been encouraged these recommendations made by Dr. Cote are in her best interest and will aide in her overall health journey. Elizabeth has done well with PT in the past however barriers to recovery include her history of fibromyalgia and mental health status. She states, Its never going to go away but the exercises help. She has been encouraged to attend PT at a frequency of 1x/week x 4-6 weeks due to time she has available. She notes stress regarding pick-up/drop-off her two small school aged children. She has 9 visits remaining under her [facility] insurance auth for her PT benefit for the year. She has been encouraged to initiate a daily walking program to aide in her both her anxiety and musculoskeletal symptoms. Frequency and Duration: The patient will be seen 1x/week x 4-6 weeks Short Term Goals: 1. Oswestry score improvement by 25%. 2. Issue self care management/HEP program to reduce symptoms. 3. Pt will improve flexibility/mobility of thoracic paraspinals. 4. Demonstrate carryover of log roll technique for mobility. 5. Demonstrate advancement to 5/5 strength thoracic paraspinals/erector spinae group. Intermediate Goals: 1. I HEP and self care management program for thoracic/upper back care. 2. Demonstrate carryover of stretching/stabilization program. 3. Strengthen lower trap and middle trap to aide in postural support 5/5 B/L. 4 Initiate a daily walking program. 5. Demonstrate good body mechanics 3:3 trials in daily activities. Treatment Plan: Modalities to reduce pain, spasms and effusion. Manual therapy to restore motion and function. Therapeutic exercise to improve strength and flexibility. Neuromuscular re-education for posture and balance. Therapeutic activities to return to functional activities of daily living. Electronically signed by: Debra Stevens, PT, DPT Please sign and return to therapist. Thank you for your referral.
== END 2025-02-24 11:59 | disposition home or self-care (01) ==
LOC: HO.PTS 10:23
PROVIDERS: Visit Provider Internal Medicine Rheumatology
DX: M47.814 Spondylosis without myelopathy or radiculopathy, thoracic region (principal)
CPT/HCPCS: 97110; 97162